=== PATIENT | male | born 1945 | race Caucasian/White ===

== ENCOUNTER 2016-11-30 08:00 | Outpatient (CLI) | payer MEDICARE, OTHER | END 2016-11-30 08:01 | disposition home or self-care (01) | DX: I82.729 Chronic embolism and thrombosis of deep veins of unspecified upper extremity (principal) ==

== ENCOUNTER 2017-01-26 14:34 | Outpatient (CLI) | payer MEDICARE, OTHER | END 2017-01-26 14:35 | disposition home or self-care (01) | DX: I82.729 Chronic embolism and thrombosis of deep veins of unspecified upper extremity (principal) ==

== ENCOUNTER 2017-03-28 08:00 | Outpatient (CLI) | payer MEDICARE, OTHER | END 2017-03-28 08:01 | disposition home or self-care (01) | LOC: LAB.F 08:00 | PROVIDERS: ATTEND Internal Medicine | DX: I82.729 Chronic embolism and thrombosis of deep veins of unspecified upper extremity (principal) | CPT/HCPCS: 85610 ==

== ENCOUNTER 2017-05-26 13:50 | Outpatient (CLI) | payer MEDICARE, OTHER | END 2017-05-26 13:51 | disposition home or self-care (01) | LOC: LAB.F 13:50 | PROVIDERS: ATTEND Internal Medicine | DX: I82.729 Chronic embolism and thrombosis of deep veins of unspecified upper extremity (principal) | CPT/HCPCS: 85610 ==

== ENCOUNTER 2017-07-26 12:55 | Outpatient (CLI) | payer MEDICARE, OTHER | END 2017-07-26 12:56 | disposition home or self-care (01) | LOC: LAB.F 12:55 | PROVIDERS: ATTEND Internal Medicine | DX: I82.729 Chronic embolism and thrombosis of deep veins of unspecified upper extremity (principal) | CPT/HCPCS: 85610 ==

== ENCOUNTER 2017-09-05 15:13 | Outpatient (CLI) | payer MEDICARE, OTHER ==
[2017-09-05 18:09] LABS: PT - PROTHROMBIN TIME 21.9 secs (9.9-12.6)
== END 2017-09-05 15:14 | disposition home or self-care (01) ==
LOC: LAB.F 15:13
PROVIDERS: ATTEND Internal Medicine
DX: I82.729 Chronic embolism and thrombosis of deep veins of unspecified upper extremity (principal); I82.4Z9 Acute embolism and thrombosis of unspecified deep veins of unspecified distal lower extremity
CPT/HCPCS: 36415; 85610

== ENCOUNTER 2017-09-21 11:29 | Outpatient (CLI) | payer MEDICARE, OTHER | END 2017-09-21 11:30 | disposition home or self-care (01) | LOC: LAB.F 11:29 | PROVIDERS: ATTEND Internal Medicine | DX: I82.729 Chronic embolism and thrombosis of deep veins of unspecified upper extremity (principal) | CPT/HCPCS: 85610 ==

== ENCOUNTER 2017-11-16 14:33 | Outpatient (CLI) | payer MEDICARE, OTHER | END 2017-11-16 14:34 | disposition home or self-care (01) | LOC: LAB.F 14:33 | PROVIDERS: ATTEND Internal Medicine | DX: I82.729 Chronic embolism and thrombosis of deep veins of unspecified upper extremity (principal) | CPT/HCPCS: 85610 ==

== ENCOUNTER 2018-01-16 10:11 | Outpatient (CLI) | payer MEDICARE, OTHER | END 2018-01-16 10:12 | disposition home or self-care (01) | LOC: LAB.F 10:11 | PROVIDERS: ATTEND Internal Medicine | DX: I82.729 Chronic embolism and thrombosis of deep veins of unspecified upper extremity (principal) | CPT/HCPCS: 85610 ==

== ENCOUNTER 2018-03-17 13:41 | Outpatient (CLI) | payer MEDICARE, OTHER | END 2018-03-17 13:42 | disposition home or self-care (01) | LOC: LAB.F 13:41 | PROVIDERS: ATTEND Internal Medicine | DX: I82.729 Chronic embolism and thrombosis of deep veins of unspecified upper extremity (principal) | CPT/HCPCS: 85610 ==

== ENCOUNTER 2018-04-12 13:25 | Outpatient (CLI) | payer MEDICARE, OTHER ==
[2018-04-12 17:42] LABS: HGB - HEMOGLOBIN 13.5 g/dL (14.0-18.0); MEAN CORPUSCULAR HEMOGLOBIN 29.5 pg (27.0-31.0); MEAN CORPUSCULAR HGB CONC 33.9 g/dL (32.0-36.0); MEAN CORPUSCULAR VOLUME 87.1 fL (80.0-94.0); MEAN PLATELET VOLUME 9.8 fL (7.4-11.4); RED BLOOD COUNT 4.56 10^6/uL (4.70-6.10); RED CELL DISTRIBUTION WIDTH 14.7 % (12.0-15.0); WHITE BLOOD COUNT 7.8 x10^3/uL (4.8-10.8)
[2018-04-12 18:04] LABS: ALBUMIN 3.4 g/dL (3.2-5.5); ALKALINE PHOSPHATASE 56 IU/L (42-121); ALT ALANINE AMINOTRANSFERASE 20 IU/L (10-60); AST ASPARTATE AMINOTRANSFERASE 24 IU/L (10-42); BILIRUBIN,TOTAL 0.6 mg/dL (0.2-1.0); BUN - BLOOD UREA NITROGEN 22 mg/dL (6-20); CARBON DIOXIDE - CO2 27 mmol/L (21-32); CHLORIDE 101 mmol/L (101-111); CHOLESTEROL 140 mg/dL; GFR - MDRD 73 (>89); GLUCOSE 129 mg/dL (70-100); HDL CHOLESTEROL 28 mg/dL; SODIUM 135 mmol/L (135-145); TOTAL PROTEIN 6.9 g/dL (6.7-8.2)
[2018-04-12 18:26] LABS: LDL CHOLESTEROL,DIRECT 64 mg/dL; LDLD/HDL RATIO 2.3 (<3.6)
== END 2018-04-12 13:26 | disposition home or self-care (01) ==
LOC: LAB.F 13:25
PROVIDERS: ATTEND Internal Medicine
DX: C61 Malignant neoplasm of prostate (principal); I10 Essential (primary) hypertension; C73 Malignant neoplasm of thyroid gland
CPT/HCPCS: 36415; 80053; 80061; 83721; 84153; 84443; 85027

== ENCOUNTER 2018-05-15 15:30 | Outpatient (CLI) | payer MEDICARE, OTHER | END 2018-05-15 15:31 | disposition home or self-care (01) | LOC: LAB.F 15:30 | PROVIDERS: ATTEND Internal Medicine | DX: I82.729 Chronic embolism and thrombosis of deep veins of unspecified upper extremity (principal) | CPT/HCPCS: 85610 ==

== ENCOUNTER 2018-07-12 14:01 | Outpatient (CLI) | payer MEDICARE, OTHER | END 2018-07-12 14:02 | disposition home or self-care (01) | LOC: LAB.F 14:01 | PROVIDERS: ATTEND Internal Medicine | DX: I82.729 Chronic embolism and thrombosis of deep veins of unspecified upper extremity (principal) | CPT/HCPCS: 85610 ==

== ENCOUNTER 2018-07-24 14:02 | Outpatient (CLI) | payer MEDICARE, OTHER | END 2018-07-24 14:03 | disposition home or self-care (01) | LOC: LAB.F 14:02 | PROVIDERS: ATTEND Internal Medicine | DX: I82.729 Chronic embolism and thrombosis of deep veins of unspecified upper extremity (principal) | CPT/HCPCS: 85610 ==

== ENCOUNTER 2018-09-14 14:17 | Outpatient (CLI) | payer MEDICARE, OTHER | END 2018-09-14 14:18 | disposition home or self-care (01) | LOC: LAB.F 14:17 | PROVIDERS: ATTEND Internal Medicine | DX: I82.729 Chronic embolism and thrombosis of deep veins of unspecified upper extremity (principal) | CPT/HCPCS: 85610 ==

== ENCOUNTER 2018-11-03 14:19 | Outpatient (CLI) | payer MEDICARE, OTHER | END 2018-11-03 14:20 | disposition home or self-care (01) | LOC: LAB 14:19 | PROVIDERS: ATTEND Internal Medicine | DX: I82.729 Chronic embolism and thrombosis of deep veins of unspecified upper extremity (principal) | CPT/HCPCS: 85610 ==

== ENCOUNTER 2018-12-29 12:25 | Outpatient (CLI) | payer MEDICARE, OTHER | END 2018-12-29 12:26 | disposition home or self-care (01) | LOC: LAB.F 12:25 | PROVIDERS: ATTEND Internal Medicine | DX: I82.729 Chronic embolism and thrombosis of deep veins of unspecified upper extremity (principal) | CPT/HCPCS: 85610 ==

== ENCOUNTER 2019-01-30 15:08 | Outpatient (CLI) | payer MEDICARE, OTHER | END 2019-01-30 15:09 | disposition home or self-care (01) | LOC: LAB.F 15:08 | PROVIDERS: ATTEND Internal Medicine | DX: I82.729 Chronic embolism and thrombosis of deep veins of unspecified upper extremity (principal) | CPT/HCPCS: 85610 ==

== ENCOUNTER 2019-02-28 14:02 | Outpatient (CLI) | payer MEDICARE, OTHER | END 2019-02-28 14:03 | disposition home or self-care (01) | LOC: LAB.F 14:02 | PROVIDERS: ATTEND Internal Medicine | DX: I82.729 Chronic embolism and thrombosis of deep veins of unspecified upper extremity (principal) | CPT/HCPCS: 85610 ==

== ENCOUNTER 2019-03-22 13:25 | Outpatient (CLI) | payer MEDICARE, OTHER | END 2019-03-22 13:26 | disposition home or self-care (01) | LOC: LAB.F 13:25 | PROVIDERS: ATTEND Internal Medicine | DX: I82.729 Chronic embolism and thrombosis of deep veins of unspecified upper extremity (principal) | CPT/HCPCS: 85610 ==

== ENCOUNTER 2019-04-13 13:30 | Outpatient (CLI) | payer MEDICARE, OTHER | END 2019-04-13 13:31 | disposition home or self-care (01) | LOC: LAB.F 13:30 | PROVIDERS: ATTEND Internal Medicine | DX: I82.729 Chronic embolism and thrombosis of deep veins of unspecified upper extremity (principal) | CPT/HCPCS: 85610 ==

== ENCOUNTER 2019-06-20 10:09 | Outpatient (CLI) | payer MEDICARE, OTHER | END 2019-06-20 10:10 | disposition home or self-care (01) | LOC: LAB.S 10:09 | PROVIDERS: ATTEND Internal Medicine | DX: I82.729 Chronic embolism and thrombosis of deep veins of unspecified upper extremity (principal) | CPT/HCPCS: 85610 ==

== ENCOUNTER 2019-07-20 11:46 | Outpatient (CLI) | payer MEDICARE, OTHER | END 2019-07-20 11:47 | disposition home or self-care (01) | LOC: LAB.S 11:46 | PROVIDERS: ATTEND Internal Medicine | DX: I82.729 Chronic embolism and thrombosis of deep veins of unspecified upper extremity (principal) | CPT/HCPCS: 85610 ==

== ENCOUNTER 2019-08-15 11:30 | Outpatient (CLI) | payer MEDICARE, OTHER | END 2019-08-15 11:31 | disposition home or self-care (01) | LOC: LAB.S 11:30 | PROVIDERS: ATTEND Internal Medicine | DX: I82.729 Chronic embolism and thrombosis of deep veins of unspecified upper extremity (principal) | CPT/HCPCS: 85610 ==

== ENCOUNTER 2019-09-28 13:41 | Outpatient (CLI) | payer MEDICARE, OTHER | END 2019-09-28 13:42 | disposition home or self-care (01) | LOC: LAB.S 13:41 | PROVIDERS: ATTEND Internal Medicine | DX: I82.729 Chronic embolism and thrombosis of deep veins of unspecified upper extremity (principal) | CPT/HCPCS: 85610 ==

== ENCOUNTER 2019-12-04 12:55 | Outpatient (CLI) | payer MEDICARE, OTHER | END 2019-12-04 12:56 | disposition home or self-care (01) | LOC: LAB.S 12:55 | PROVIDERS: ATTEND Internal Medicine | DX: I82.729 Chronic embolism and thrombosis of deep veins of unspecified upper extremity (principal) | CPT/HCPCS: 85610 ==

== ENCOUNTER 2020-03-06 11:05 | Outpatient (CLI) | payer MEDICARE, OTHER | END 2020-03-06 11:06 | disposition home or self-care (01) | LOC: LAB 11:05 | PROVIDERS: ATTEND Internal Medicine | DX: I82.4Z9 Acute embolism and thrombosis of unspecified deep veins of unspecified distal lower extremity (principal) | CPT/HCPCS: 85610 ==

== ENCOUNTER 2020-05-02 13:35 | Outpatient (CLI) | payer MEDICARE, OTHER | END 2020-05-02 13:36 | disposition home or self-care (01) | LOC: LAB 13:35 | PROVIDERS: ATTEND Internal Medicine | DX: I82.4Z9 Acute embolism and thrombosis of unspecified deep veins of unspecified distal lower extremity (principal) | CPT/HCPCS: 85610 ==

== ENCOUNTER 2020-08-03 17:12 | Emergency (ER) | payer MEDICARE, OTHER ==
[2020-08-03 17:36] LABS: BILIRUBIN,URINE NEGATIVE (NEGATIVE); GLUCOSE, URINE (UA) NEGATIVE (NEGATIVE); KETONES,URINE (UA) NEGATIVE (NEGATIVE); LEUKOCYTE ESTERASE, URINE NEGATIVE (NEGATIVE); NITRITE,URINE NEGATIVE (NEGATIVE); OCCULT BLOOD,URINE LARGE (NEGATIVE); PH,URINE 5.5 PH (5.0-7.5); PROTEIN,URINE 100 mg/dL (NEGATIVE); UROBILINOGEN,URINE 1 (NORMAL) E.U./dL (NORMAL)
[2020-08-03 17:39] LABS: CLARITY,URINE CLOUDY (CLEAR)
[2020-08-03 17:46] LABS: BACTERIA,URINE Rare /HPF (None Seen); RBC,URINE TNTC /HPF (0-5); SQUAMOUS EPITHELIAL CELL,UR NONE SEEN (<= Few)
[2020-08-03 17:53] LABS: BASOPHILS % (AUTO) 0.3 %; EOSINOPHILS # (AUTO) 0.2 10^3/uL (0.0-0.7); EOSINOPHILS % (AUTO) 2.6 %; HGB - HEMOGLOBIN 13.1 g/dL (14.0-18.0); LYMPHOCYTES # (AUTO) 1.5 10^3/uL (1.5-3.5); LYMPHOCYTES % (AUTO) 19.7 %; MEAN CORPUSCULAR HEMOGLOBIN 28.7 pg (27.0-31.0); MEAN CORPUSCULAR HGB CONC 33.6 g/dL (32.0-36.0); MEAN CORPUSCULAR VOLUME 85.3 fL (80.0-94.0); MEAN PLATELET VOLUME 9.5 fL (7.4-11.4); MONOCYTES # (AUTO) 0.9 10^3/uL (0.0-1.0); MONOCYTES % (AUTO) 11.9 %; NEUTROPHILS # (AUTO) 4.8 10^3/uL (1.5-6.6); NEUTROPHILS % (AUTO) 64.7 %; PLT - PLATELET COUNT 159 10^3/uL (130-450); RED BLOOD COUNT 4.57 10^6/uL (4.70-6.10); RED CELL DISTRIBUTION WIDTH 14.3 % (12.0-15.0); WHITE BLOOD COUNT 7.4 x10^3/uL (4.8-10.8)
[2020-08-03 17:59] LABS: INR 2.5 (0.8-1.2)
[2020-08-03 18:05] LABS: CALCIUM 7.5 mg/dL (8.5-10.3); CREATININE 0.9 mg/dL (0.6-1.2)
[2020-08-03 19:22] VITALS: BP 139/86
[2020-08-03] MEDS ORDERED: cephALEXin 250 MG CAPSULE PO STA (19:26)
--- NOTE | 2020-08-03 19:28 | ED Physician Documentation ---
PD HPI MALE - Stated complaint Stated Complaint: BLOOD IN URINE - Chief complaint Chief Complaint: Abd Pain - History obtained from History obtained from: Patient - History of Present Illness Timing - onset: Today Timing - duration: Days (1) Timing - details: Gradual onset Pain level max: 0 Pain level now: 0 Associated symptoms: Hematuria Similar symptoms before: Has not had sx before Recently seen: Not recently seen - Additional information Additional information: Patient states that he was on a long car trip recently and when he got home tonight noticed blood in his urine. Otherwise asymptomatic. Is on warfarin. No back pain. No head pain. No trauma. Review of Systems Constitutional: denies: Fever, Chills Respiratory: denies: Cough GI: denies: Abdominal Pain, Nausea, Vomiting, Diarrhea Skin: denies: Rash Musculoskeletal: denies: Neck pain, Back pain Neurologic: denies: Headache PD PAST MEDICAL HISTORY - Past Medical History Past Medical History: No - Past Surgical History Past Surgical History: No - Present Medications Home Medications: Ambulatory Orders Medication Instructions Recorded Confirmed Cephalexin [Keflex] 500 mg PO Q6H #28 capsule 08/03/20 - Allergies Allergies/Adverse Reactions: Allergies Allergy/AdvReac Type Severity Reaction Status Date / Time No Known Drug Allergies Allergy Verified 08/03/20 17:15 - Living Situation Living Situation: reports: With family Living Arrangement: reports: At home - Social History Does the pt have substance abuse?: No - Family History Family history: reports: Non contributory PD ED PE NORMAL - Vitals Vital signs reviewed: Yes - General General: Alert and oriented X 3, No acute distress - HEENT HEENT: Moist mucous membranes - Neck Neck: Supple, no meningeal sign - Cardiac Cardiac: RRR, Strong equal pulses - Respiratory Respiratory: No respiratory distress, Clear bilaterally - Abdomen Abdomen: Soft, Non tender, Non distended - Back Back: No CVA TTP, No spinal TTP - Derm Derm: Warm and dry - Neuro Neuro: Alert and oriented X 3 - Psych Psych: Normal mood, Normal affect Results - Vitals Vitals: Vital Signs - 24 hr 08/03/20 08/03/20 17:15 19:22 Temperature 36.5 C Heart Rate 70 63 Respiratory 16 Rate Blood Pressure 178/91 H 139/86 H O2 Saturation 98 Oxygen O2 Source Room air - Labs Labs: Laboratory Tests 08/03/20 08/03/20 08/03/20 17:25 17:46 17:46 WBC 7.4 RBC 4.57 L Hgb 13.1 L Hct 39.0 L MCV 85.3 MCH 28.7 MCHC 33.6 RDW 14.3 Plt Count 159 MPV 9.5 Neut # (Auto) 4.8 Lymph # (Auto) 1.5 [place] # (Auto) 0.9 Eos # (Auto) 0.2 Baso # (Auto) 0.0 Absolute Nucleated RBC 0.00 Nucleated RBC % 0.0 PT 26.0 H INR 2.5 H Sodium Potassium Chloride Carbon Dioxide Anion Gap BUN Creatinine Estimated GFR (MDRD) Glucose Calcium Urine Color DARK YELLOW Urine Clarity CLOUDY Urine pH 5.5 Ur Specific [place] 1.025 Urine Protein 100 H Urine Glucose (UA) NEGATIVE Urine Ketones NEGATIVE Urine Occult Blood LARGE H Urine Nitrite NEGATIVE Urine Bilirubin NEGATIVE Urine Urobilinogen 1 (NORMAL) Ur Leukocyte Esterase NEGATIVE Urine RBC TNTC H Urine WBC 0-3 Ur Squamous Epith Cells NONE SEEN Urine Bacteria Rare Ur Microscopic Review INDICATED Urine Culture Comments NOT INDICATED 08/03/20 17:46 WBC RBC Hgb Hct MCV MCH MCHC RDW Plt Count MPV Neut # (Auto) Lymph # (Auto) [place] # (Auto) Eos # (Auto) Baso # (Auto) Absolute Nucleated RBC Nucleated RBC % PT INR Sodium 140 Potassium 4.1 Chloride 104 Carbon Dioxide 24 Anion Gap 12.0 BUN 27 H Creatinine 0.9 Estimated GFR (MDRD) 82 L Glucose 181 H Calcium 7.5 L Urine Color Urine Clarity Urine pH Ur Specific [place] Urine Protein Urine Glucose (UA) Urine Ketones Urine Occult Blood Urine Nitrite Urine Bilirubin Urine Urobilinogen Ur Leukocyte Esterase Urine RBC Urine WBC Ur Squamous Epith Cells Urine Bacteria Ur Microscopic Review Urine Culture Comments PD MEDICAL DECISION MAKING - ED course Complexity details: reviewed results, re-evaluated patient, considered differential, d/w patient ED course: Patient with hematuria of unclear etiology, does have bacteruria, so will treat for UTI and see how he progresses. Otherwise asymptomatic. Patient counseled regarding signs and symptoms for which I believe and urgent re-evaluation would be necessary. Patient with good understanding of and agreement to plan and is comfortable going home at this time This document was made in part using voice recognition software. While efforts are made to proofread this document, sound alike and grammatical errors may occur. Departure - Departure Disposition: 01 Home, Self Care Clinical Impression: Anticoagulant long-term use Hematuria Qualifiers: Hematuria type: gross Qualified Code(s): R31.0 - Gross hematuria UTI (urinary tract infection) Qualifiers: Urinary tract infection type: acute cystitis Hematuria presence: with hematuria Qualified Code(s): N30.01 - Acute cystitis with hematuria Condition: Good Instructions: ED UTI Cystitis Male Follow-Up: Lencho Augustin MD [Primary Care Provider] - Within 1 week Prescriptions: Cephalexin [Keflex] 500 mg PO Q6H #28 capsule Comments: Take all antibiotics until gone. Return if you worsen. Your INR is 2.5 today. The blood in the urine should resolve over the next 2 to 3 days Discharge Date/Time: 08/03/20 19:36
== END 2020-08-03 19:36 | disposition home or self-care (01) ==
LOC: ED 17:12
DX: N30.01 Acute cystitis with hematuria (principal); Z79.01 Long term (current) use of anticoagulants
CPT/HCPCS: 36415; 80048; 81001; 85025; 85610; 99283; 99284; A9270; 81003; 87086

== ENCOUNTER 2020-10-04 12:59 | Outpatient (CLI) | payer MEDICARE, OTHER | END 2020-10-04 13:00 | disposition home or self-care (01) | LOC: LAB.S 12:59 | PROVIDERS: ATTEND Internal Medicine | DX: I82.4Z9 Acute embolism and thrombosis of unspecified deep veins of unspecified distal lower extremity (principal) | CPT/HCPCS: 85610 ==

== ENCOUNTER 2020-10-17 09:32 | Outpatient (CLI) | payer MEDICARE, OTHER ==
[2020-10-17 14:07] LABS: HGB - HEMOGLOBIN 13.4 g/dL (14.0-18.0); MEAN CORPUSCULAR HEMOGLOBIN 28.2 pg (27.0-31.0); MEAN CORPUSCULAR HGB CONC 32.8 g/dL (32.0-36.0); MEAN CORPUSCULAR VOLUME 85.9 fL (80.0-94.0); MEAN PLATELET VOLUME 11.3 fL (7.4-11.4); RED BLOOD COUNT 4.76 10^6/uL (4.70-6.10); RED CELL DISTRIBUTION WIDTH 14.2 % (12.0-15.0); WHITE BLOOD COUNT 7.8 x10^3/uL (4.8-10.8)
[2020-10-17 14:16] LABS: INR 2.4 (0.8-1.2); PT - PROTHROMBIN TIME 25.5 secs (9.9-12.6)
[2020-10-17 14:23] LABS: ALBUMIN 3.6 g/dL (3.2-5.5); ALBUMIN/GLOBULIN RATIO 1.1 (1.0-2.2); ALKALINE PHOSPHATASE 87 IU/L (42-121); ALT ALANINE AMINOTRANSFERASE 21 IU/L (10-60); AST ASPARTATE AMINOTRANSFERASE 22 IU/L (10-42); BILIRUBIN,TOTAL 0.8 mg/dL (0.2-1.0); BUN - BLOOD UREA NITROGEN 22 mg/dL (6-20); CALCIUM 7.3 mg/dL (8.5-10.3); CARBON DIOXIDE - CO2 25 mmol/L (21-32); CHLORIDE 103 mmol/L (101-111); CHOL/HDL RATIO 3.3 (<5.0); CHOLESTEROL 106 mg/dL; CREATININE 0.9 mg/dL (0.6-1.2); GLUCOSE 144 mg/dL (70-100); HDL CHOLESTEROL 32 mg/dL; LDL CHOLESTEROL,CALCULATED 44 mg/dL; LDL/HDL RATIO 1.4 (<3.6); SODIUM 139 mmol/L (135-145); VLDL CHOLESTEROL 30 mg/dL
[2020-10-17 14:24] LABS: CREATININE,URINE 126.7 mg/dL; MICROALBUM/CREATININE RATIO,UR 87.6 ug/mg (<30.0); MICROALBUMIN,URINE 11.1 mg/dL (0-300.0)
[2020-10-17 14:46] LABS: HEMOGLOBIN A1c% 6.9 % (4.27-6.07)
[2020-10-18 13:44] LABS: HEPATITIS C ANTIBODY NON-REACTIVE (NON-REACTIVE)
== END 2020-10-17 09:33 | disposition home or self-care (01) ==
LOC: LAB.S 09:32
PROVIDERS: ATTEND Internal Medicine
DX: Z00.00 Encounter for general adult medical examination without abnormal findings (principal); I10 Essential (primary) hypertension; E20.9 Hypoparathyroidism, unspecified; R73.03 Prediabetes; Z79.01 Long term (current) use of anticoagulants; Z79.899 Other long term (current) drug therapy; Z11.59 Encounter for screening for other viral diseases
CPT/HCPCS: 36415; 80053; 80061; 82043; 82570; 83036; 84443; 85027; 85610; 86803; G0103; 83721; 84153

== ENCOUNTER 2020-11-27 12:43 | Outpatient (CLI) | payer MEDICARE, OTHER | END 2020-11-27 12:44 | disposition home or self-care (01) | LOC: LAB.S 12:43 | PROVIDERS: ATTEND Internal Medicine | DX: I82.4Z9 Acute embolism and thrombosis of unspecified deep veins of unspecified distal lower extremity (principal) | CPT/HCPCS: 85610 ==

== ENCOUNTER 2021-01-23 15:15 | Outpatient (CLI) | payer MEDICARE, OTHER | END 2021-01-23 15:16 | disposition home or self-care (01) | LOC: LAB.S 15:15 | PROVIDERS: ATTEND Internal Medicine | DX: I82.4Z9 Acute embolism and thrombosis of unspecified deep veins of unspecified distal lower extremity (principal) | CPT/HCPCS: 85610 ==

== ENCOUNTER 2021-03-23 14:07 | Outpatient (CLI) | payer MEDICARE, OTHER | END 2021-03-23 14:08 | disposition home or self-care (01) | LOC: LAB.S 14:07 | PROVIDERS: ATTEND Internal Medicine | DX: I82.4Z9 Acute embolism and thrombosis of unspecified deep veins of unspecified distal lower extremity (principal) | CPT/HCPCS: 36416; 85610 ==

== ENCOUNTER 2021-05-20 13:32 | Outpatient (CLI) | payer MEDICARE, OTHER | END 2021-05-20 13:33 | disposition home or self-care (01) | LOC: LAB.S 13:32 | PROVIDERS: ATTEND Internal Medicine | DX: I82.4Z9 Acute embolism and thrombosis of unspecified deep veins of unspecified distal lower extremity (principal) | CPT/HCPCS: 36416; 85610 ==

== ENCOUNTER 2021-07-03 16:05 | Outpatient (CLI) | payer MEDICARE, OTHER | END 2021-07-03 16:06 | disposition home or self-care (01) | LOC: LAB.S 16:05 | PROVIDERS: ATTEND Internal Medicine | DX: I82.4Z9 Acute embolism and thrombosis of unspecified deep veins of unspecified distal lower extremity (principal) | CPT/HCPCS: 36416; 85610 ==

== ENCOUNTER 2021-09-03 08:00 | Outpatient (CLI) | payer MEDICARE, OTHER | END 2021-09-03 23:59 | disposition home or self-care (01) | LOC: LAB.S 08:00 | PROVIDERS: ATTEND Internal Medicine | DX: I82.4Z9 Acute embolism and thrombosis of unspecified deep veins of unspecified distal lower extremity (principal) | CPT/HCPCS: 36416; 85610 ==

== ENCOUNTER 2021-11-03 12:52 | Outpatient (CLI) | payer OTHER | END 2021-11-03 12:53 | disposition home or self-care (01) | LOC: LAB.S 12:52 | PROVIDERS: ATTEND Internal Medicine | DX: I82.4Z9 Acute embolism and thrombosis of unspecified deep veins of unspecified distal lower extremity (principal) | CPT/HCPCS: 36416; 85610 ==

== ENCOUNTER 2021-12-30 12:14 | Outpatient (CLI) | payer MEDICARE | END 2021-12-30 12:15 | disposition home or self-care (01) | LOC: LAB.S 12:14 | PROVIDERS: ATTEND Internal Medicine | DX: I82.4Z9 Acute embolism and thrombosis of unspecified deep veins of unspecified distal lower extremity (principal) | CPT/HCPCS: 36416; 85610 ==

== ENCOUNTER 2022-02-16 07:58 | Outpatient (CLI) | payer MEDICARE | END 2022-02-16 07:59 | disposition critical access hospital (66) | LOC: EMS 07:58 | DX: R42 Dizziness and giddiness (principal) | CPT/HCPCS: A0425; A0429 ==

== ENCOUNTER 2022-02-16 08:33 | Emergency (ER) | payer MEDICARE ==
--- NOTE | 2022-02-16 08:55 | ED Physician Documentation ---
History of Present Illness - Stated complaint Stated Complaint: NEAR SYNCOPE - History obtained from History obtained from: Patient - History of Present Illness Timing: Today Pain level max: 0 Pain level now: 0 - Additonal information Additional information: 76-year-old male states that he was fishing today when he stood up quickly and felt lightheaded. This lasted for about 5 to 10 seconds. He felt like the room was spinning. Did fall. Does not think he struck his head. 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 No chest pain. No shortness of breath. Currently is fully asymptomatic. He did not eat or drink this morning. Has never had similar symptoms previously. Nothing makes it better or worse. Negative orthostatics with EMS. Review of Systems Constitutional: denies: Fever, Chills Cardiac: denies: Chest pain / pressure Respiratory: denies: Cough, Wheezing GI: denies: Vomiting, Diarrhea Skin: denies: Rash Musculoskeletal: denies: Neck pain, Back pain Neurologic: denies: Headache PD PAST MEDICAL HISTORY - Past Medical History Past Medical History: Yes Other Past Medical History: DVT - Past Surgical History Past Surgical History: No - Present Medications Home Medications: Ambulatory Orders Medication Instructions Recorded Confirmed cephALEXin [Keflex] 500 mg PO Q6H #28 capsule 08/03/20 - Allergies Allergies/Adverse Reactions: Allergies Allergy/AdvReac Type Severity Reaction Status Date / Time No Known Drug Allergies Allergy Verified 02/16/22 08:43 - Living Situation Living Situation: reports: With family Living Arrangement: reports: At home - Social History Does the pt have substance abuse?: No - Family History Family history: reports: Non contributory PD ED PE NORMAL - Vitals Vital signs reviewed: Yes - General General: Alert and oriented X 3, No acute distress - HEENT HEENT: Atraumatic, PERRL, Ears normal, Moist mucous membranes, Pharynx benign, Other (no mastoid tenderness) - Neck Neck: Supple, no meningeal sign - Cardiac Cardiac: RRR - Respiratory Respiratory: No respiratory distress, Clear bilaterally - Abdomen Abdomen: Soft, Non tender, Non distended - Derm Derm: Warm and dry - Neuro Neuro: Alert and oriented X 3, 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, No motor deficit, No sensory deficit, Normal speech - Psych Psych: Normal mood, Normal affect Results - Vitals Vitals: Vital Signs - 24 hr 02/16/22 02/16/22 08:43 10:27 Temperature 37.0 C 36.6 C Heart Rate 58 L 57 L Respiratory 26 H 16 Rate Blood Pressure 168/99 H 126/85 H O2 Saturation 94 99 Oxygen O2 Source Room air - EKG (time done) 0844 Rate: Rate (enter#) (57) Rhythm: NSR [place]: Normal Intervals: Normal [place] QRS: Normal Ischemia: Normal ST segments - Labs Labs: Laboratory Tests 02/16/22 02/16/22 02/16/22 09:00 09:00 09:00 WBC 6.4 RBC 4.77 Hgb 13.4 L Hct 40.9 L MCV 85.7 MCH 28.1 MCHC 32.8 RDW 14.0 Plt Count 167 MPV 9.8 Neut # (Auto) 4.6 Lymph # (Auto) 1.0 L [place] # (Auto) 0.7 Eos # (Auto) 0.1 Baso # (Auto) 0.0 Absolute Nucleated RBC 0.00 Nucleated RBC % 0.0 PT 32.4 H INR 2.9 H Sodium 136 Potassium 4.2 Chloride 103 Carbon Dioxide 25 Anion Gap 8.0 BUN 20 Creatinine 0.8 Estimated GFR (MDRD) 93 Glucose 128 H Calcium 7.7 L Total Bilirubin 0.9 AST 21 ALT 19 Alkaline Phosphatase 84 Troponin I High Sens Total Protein 7.2 Albumin 3.6 Globulin 3.6 Albumin/Globulin Ratio 1.0 Lipase 29 02/16/22 09:00 WBC RBC Hgb Hct MCV MCH MCHC RDW Plt Count MPV Neut # (Auto) Lymph # (Auto) [place] # (Auto) Eos # (Auto) Baso # (Auto) Absolute Nucleated RBC Nucleated RBC % PT INR Sodium Potassium Chloride Carbon Dioxide Anion Gap BUN Creatinine Estimated GFR (MDRD) Glucose Calcium Total Bilirubin AST ALT Alkaline Phosphatase Troponin I High Sens 5.6 Total Protein Albumin Globulin Albumin/Globulin Ratio Lipase - Rads (name of study) head CT Radiology: Final report received, EMP read contemporaneously, See rad report (no acute abnormalities) cxr Radiology: Final report received, EMP read contemporaneously, See rad report (no acute abnormalities) PD MEDICAL DECISION MAKING - ED course Complexity details: reviewed results, re-evaluated patient, considered differential, d/w patient ED course: 76-year-old male with what appears to be near syncope today. This occurred after standing up quickly after bending over. No acute findings on EKG, laboratory testing, head CT. No chest pain. No shortness of breath. Does have opacification of the right mastoid air cells. He states that this is a chronic issue for him. No signs of active infection. No mastoid tenderness. No fevers. We will continue supportive care and have him follow-up with his doctor. Patient counseled regarding signs and symptoms for which I believe and urgent re-evaluation would be necessary. Patient with good understanding of and agreement to plan and is comfortable going home at this time This document was made in part using voice recognition software. While efforts are made to proofread this document, sound alike and grammatical errors may occur. Departure - Departure Disposition: 01 Home, Self Care Clinical Impression: Near syncope Condition: Good Instructions: ED Near Syncope Unkn Follow-Up: your,doctor in 1 week [Other] Comments: Drink plenty of fluids. Return if you worsen. Follow up with your doctor for further care. Your CT scans and lab testing do not show any acute abnormalities today. Follow up with your doctor for the right mastoid air opacification. IMPRESSION: 1.No acute intracranial abnormality. 2.Right mastoid air cell opacification. Discharge Date/Time: 02/16/22 10:28
[2022-02-16 09:05] LABS: BASOPHILS % (AUTO) 0.3 %; EOSINOPHILS # (AUTO) 0.1 10^3/uL (0.0-0.7); HCT - HEMATOCRIT 40.9 % (42.0-52.0); HGB - HEMOGLOBIN 13.4 g/dL (14.0-18.0); MEAN CORPUSCULAR HEMOGLOBIN 28.1 pg (27.0-31.0); MEAN CORPUSCULAR HGB CONC 32.8 g/dL (32.0-36.0); MEAN CORPUSCULAR VOLUME 85.7 fL (80.0-94.0); MEAN PLATELET VOLUME 9.8 fL (7.4-11.4); MONOCYTES # (AUTO) 0.7 10^3/uL (0.0-1.0); MONOCYTES % (AUTO) 10.1 %; NEUTROPHILS # (AUTO) 4.6 10^3/uL (1.5-6.6); NEUTROPHILS % (AUTO) 71.1 %; PLT - PLATELET COUNT 167 10^3/uL (130-450); RED BLOOD COUNT 4.77 10^6/uL (4.70-6.10); WHITE BLOOD COUNT 6.4 x10^3/uL (4.8-10.8)
--- NOTE | 2022-02-16 09:10 | XRAY Report ---
PROCEDURE: Chest 1 View X-Ray INDICATIONS: Chest Pain TECHNIQUE: One view of the chest was acquired. COMPARISON: None. FINDINGS: SUPPORT DEVICES: None. LUNGS/PLEURA: No focal consolidation, pleural effusion or space-occupying pneumothorax. MEDIASTINUM: The cardiomediastinal silhouette is within normal limits. Tortuous aorta. BONES/SOFT TISSUES: No acute abnormality. IMPRESSION: 1.No acute cardiopulmonary abnormality. Reviewed by: Jacob Bloom MD on 02/16/2022 9:08 AM PDT Approved by: Jacob Bloom MD on 02/16/2022 9:08 AM PDT Station ID: [id number]
--- NOTE | 2022-02-16 09:17 | CT Report ---
PROCEDURE: HEAD WO INDICATIONS: fall, head injury TECHNIQUE: Noncontrast 4.5 mm thick angled axial sections acquired from the foramen magnum to the vertex. For r adiation dose reduction, the following was used: automated exposure control, adjustment of mA and/or kV according to patient size. COMPARISON: None. FINDINGS: BRAIN PARENCHYMA: Mild white matter hypoattenuation, which may reflect the sequela microvascular isch emia. No acute cortical based (large territory) infarction, intracranial hemorrhage, mass or mass eff ect, or abnormal fluid collection. The density in the larger dural venous sinuses is grossly normal. VENTRICLES: Normal in size, shape, and position. BONES/SINUSES: The skull base and calvarium demonstrate no acute abnormality. The paranasal sinuses a nd left mastoid air cells are well aerated. Opacification of the right mastoid air cells. IMPRESSION: 1.No acute intracranial abnormality. 2.Right mastoid air cell opacification. Reviewed by: Jacob Bloom MD on 02/16/2022 9:15 AM PDT Approved by: Jacob Bloom MD on 02/16/2022 9:15 AM PDT Station ID: [id number]
[2022-02-16 09:22] LABS: INR 2.9 (0.8-1.2); PT - PROTHROMBIN TIME 32.4 secs (9.9-12.6)
[2022-02-16 09:50] LABS: ALBUMIN 3.6 g/dL (3.2-5.5); BILIRUBIN,TOTAL 0.9 mg/dL (0.2-1.0); CALCIUM 7.7 mg/dL (8.5-10.3); CREATININE 0.8 mg/dL (0.6-1.2); POTASSIUM 4.2 mmol/L (3.5-5.0); TOTAL PROTEIN 7.2 g/dL (6.7-8.2)
[2022-02-16 10:29] VITALS: BP 126/85
== END 2022-02-16 10:28 | disposition home or self-care (01) ==
LOC: EDUNIT# → ED 08:33
DX: R55 Syncope and collapse (principal); Z86.718 Personal history of other venous thrombosis and embolism; Z79.01 Long term (current) use of anticoagulants
CPT/HCPCS: 36415; 80053; 83690; 84484; 85025; 85610; 93005; 99283; 99284

== ENCOUNTER 2022-03-10 14:32 | Outpatient (CLI) | payer MEDICARE | END 2022-03-10 14:33 | disposition home or self-care (01) | LOC: LAB.S 14:32 | PROVIDERS: ATTEND Internal Medicine | DX: I82.4Z9 Acute embolism and thrombosis of unspecified deep veins of unspecified distal lower extremity (principal) | CPT/HCPCS: 36416; 85610 ==

== ENCOUNTER 2022-05-10 09:00 | Outpatient (CLI) | payer MEDICARE | END 2022-05-10 09:01 | disposition home or self-care (01) | LOC: LAB.S 09:00 | PROVIDERS: ATTEND Internal Medicine | DX: I82.4Z9 Acute embolism and thrombosis of unspecified deep veins of unspecified distal lower extremity (principal) | CPT/HCPCS: 36416; 85610 ==

== ENCOUNTER 2022-07-06 12:20 | Outpatient (CLI) | payer MEDICARE | END 2022-07-06 12:21 | disposition home or self-care (01) | LOC: LAB.S 12:20 | PROVIDERS: ATTEND Internal Medicine | DX: I82.4Z9 Acute embolism and thrombosis of unspecified deep veins of unspecified distal lower extremity (principal) | CPT/HCPCS: 36416; 85610 ==

== ENCOUNTER 2022-10-27 10:21 | Outpatient (CLI) | payer MEDICARE | END 2022-10-27 10:22 | disposition home or self-care (01) | LOC: LAB.S 10:21 | PROVIDERS: ATTEND Internal Medicine | DX: I82.4Z9 Acute embolism and thrombosis of unspecified deep veins of unspecified distal lower extremity (principal) | CPT/HCPCS: 36416; 85610 ==

== ENCOUNTER 2022-10-29 10:52 | Outpatient (CLI) | payer MEDICARE | END 2022-10-29 10:53 | disposition home or self-care (01) | LOC: LAB.S 10:52 | PROVIDERS: ATTEND Internal Medicine | DX: I82.4Z9 Acute embolism and thrombosis of unspecified deep veins of unspecified distal lower extremity (principal) | CPT/HCPCS: 36416; 85610 ==

== ENCOUNTER 2022-11-11 14:53 | Outpatient (CLI) | payer MEDICARE | END 2022-11-11 14:54 | disposition home or self-care (01) | LOC: LAB.S 14:53 | PROVIDERS: ATTEND Internal Medicine | DX: I82.4Z9 Acute embolism and thrombosis of unspecified deep veins of unspecified distal lower extremity (principal) | CPT/HCPCS: 36416; 85610 ==

== ENCOUNTER 2022-11-30 10:17 | Outpatient (CLI) | payer MEDICARE ==
[2022-11-30 14:59] LABS: HCT - HEMATOCRIT 39.2 % (42.0-52.0); HGB - HEMOGLOBIN 12.4 g/dL (14.0-18.0); MEAN CORPUSCULAR HEMOGLOBIN 27.9 pg (27.0-31.0); MEAN CORPUSCULAR HGB CONC 31.6 g/dL (32.0-36.0); MEAN CORPUSCULAR VOLUME 88.3 fL (80.0-94.0); MEAN PLATELET VOLUME 11.3 fL (7.4-11.4); RED BLOOD COUNT 4.44 10^6/uL (4.70-6.10); RED CELL DISTRIBUTION WIDTH 14.9 % (12.0-15.0); WHITE BLOOD COUNT 7.3 x10^3/uL (4.8-10.8)
[2022-11-30 15:23] LABS: ALBUMIN 3.6 g/dL (3.2-5.5); ALBUMIN/GLOBULIN RATIO 0.9 (1.0-2.2); ALKALINE PHOSPHATASE 214 IU/L (42-121); ALT ALANINE AMINOTRANSFERASE 25 IU/L (10-60); AST ASPARTATE AMINOTRANSFERASE 27 IU/L (10-42); BUN - BLOOD UREA NITROGEN 21 mg/dL (6-20); CALCIUM 7.2 mg/dL (8.5-10.3); CARBON DIOXIDE - CO2 30 mmol/L (21-32); CHLORIDE 103 mmol/L (101-111); CHOL/HDL RATIO 2.5 (<5.0); CHOLESTEROL 91 mg/dL; CREATININE 0.9 mg/dL (0.6-1.2); GFR - MDRD 81 (>89); GLUCOSE 123 mg/dL (70-100); HDL CHOLESTEROL 37 mg/dL; LDL CHOLESTEROL,CALCULATED 42 mg/dL; LDL/HDL RATIO 1.1 (<3.6); SODIUM 138 mmol/L (135-145); TOTAL PROTEIN 7.5 g/dL (6.7-8.2); TRIGLYCERIDES 58 mg/dL; VLDL CHOLESTEROL 12 mg/dL
[2022-11-30 15:24] LABS: CREATININE,URINE 147.6 mg/dL; MICROALBUM/CREATININE RATIO,UR 74.5 ug/mg (<30.0)
[2022-11-30 15:27] LABS: THYROID STIMULATING HORMONE 0.85 uIU/mL (0.34-5.60)
[2022-11-30 20:29] LABS: ESTIMATED AVERAGE GLUCOSE 143 mg/dL (70-100); HEMOGLOBIN A1c% 6.6 % (4.27-6.07)
== END 2022-11-30 10:18 | disposition home or self-care (01) ==
LOC: LAB.S 10:17
PROVIDERS: ATTEND Internal Medicine
DX: C61 Malignant neoplasm of prostate (principal); C73 Malignant neoplasm of thyroid gland; E11.42 Type 2 diabetes mellitus with diabetic polyneuropathy; I10 Essential (primary) hypertension; I48.0 Paroxysmal atrial fibrillation
CPT/HCPCS: 36415; 80053; 80061; 82043; 82570; 82607; 83036; 83721; 84153; 84443; 85027

== ENCOUNTER 2022-12-10 08:54 | Outpatient (CLI) | payer MEDICARE | END 2022-12-10 08:55 | disposition home or self-care (01) | LOC: LAB.S 08:54 | PROVIDERS: ATTEND Internal Medicine | DX: I82.4Z9 Acute embolism and thrombosis of unspecified deep veins of unspecified distal lower extremity (principal) | CPT/HCPCS: 36416; 85610 ==

== ENCOUNTER 2022-12-24 12:44 | Outpatient (CLI) | payer MEDICARE | END 2022-12-24 12:45 | disposition home or self-care (01) | LOC: LAB.S 12:44 | PROVIDERS: ATTEND Internal Medicine | DX: I82.4Z9 Acute embolism and thrombosis of unspecified deep veins of unspecified distal lower extremity (principal) | CPT/HCPCS: 36416; 85610 ==

== ENCOUNTER 2023-01-10 13:59 | Outpatient (CLI) | payer MEDICARE ==
[2023-01-10 20:22] LABS: HCT - HEMATOCRIT 34.5 % (42.0-52.0); HGB - HEMOGLOBIN 10.8 g/dL (14.0-18.0); MEAN CORPUSCULAR HEMOGLOBIN 28.3 pg (27.0-31.0); MEAN CORPUSCULAR HGB CONC 31.3 g/dL (32.0-36.0); MEAN CORPUSCULAR VOLUME 90.6 fL (80.0-94.0); MEAN PLATELET VOLUME 11.3 fL (7.4-11.4); RED BLOOD COUNT 3.81 10^6/uL (4.70-6.10); RED CELL DISTRIBUTION WIDTH 15.6 % (12.0-15.0); WHITE BLOOD COUNT 7.5 x10^3/uL (4.8-10.8)
== END 2023-01-10 14:00 | disposition home or self-care (01) ==
LOC: LAB.S 13:59
PROVIDERS: ATTEND Internal Medicine
DX: I82.4Z9 Acute embolism and thrombosis of unspecified deep veins of unspecified distal lower extremity (principal)
CPT/HCPCS: 36415; 85027; 85610

== ENCOUNTER 2023-01-27 10:36 | Outpatient (CLI) | payer MEDICARE | END 2023-01-27 10:37 | disposition home or self-care (01) | LOC: LAB.S 10:36 | PROVIDERS: ATTEND Internal Medicine | DX: I82.4Z9 Acute embolism and thrombosis of unspecified deep veins of unspecified distal lower extremity (principal) | CPT/HCPCS: 36416; 85610 ==

== ENCOUNTER 2023-02-04 09:15 | Outpatient (CLI) | payer MEDICARE | END 2023-02-04 09:16 | disposition home or self-care (01) | LOC: LAB.S 09:15 | PROVIDERS: ATTEND Internal Medicine | DX: I82.4Z9 Acute embolism and thrombosis of unspecified deep veins of unspecified distal lower extremity (principal) | CPT/HCPCS: 36416; 85610 ==

== ENCOUNTER 2023-02-18 10:58 | Outpatient (CLI) | payer MEDICARE | END 2023-02-18 10:59 | disposition home or self-care (01) | LOC: LAB.S 10:58 | PROVIDERS: ATTEND Internal Medicine | DX: I82.4Z9 Acute embolism and thrombosis of unspecified deep veins of unspecified distal lower extremity (principal) | CPT/HCPCS: 36416; 85610 ==

== ENCOUNTER 2023-02-28 14:52 | Outpatient (CLI) | payer MEDICARE | END 2023-02-28 14:53 | disposition home or self-care (01) | LOC: LAB.S 14:52 | PROVIDERS: ATTEND Internal Medicine | DX: I82.4Z9 Acute embolism and thrombosis of unspecified deep veins of unspecified distal lower extremity (principal) | CPT/HCPCS: 36416; 85610 ==

== ENCOUNTER 2023-03-09 12:17 | Outpatient (CLI) | payer MEDICARE | END 2023-03-09 12:18 | disposition home or self-care (01) | LOC: LAB.S 12:17 | PROVIDERS: ATTEND Internal Medicine | DX: I82.4Z9 Acute embolism and thrombosis of unspecified deep veins of unspecified distal lower extremity (principal) | CPT/HCPCS: 36416; 85610 ==

== ENCOUNTER 2023-03-21 13:27 | Outpatient (CLI) | payer MEDICARE ==
[2023-03-21 20:07] LABS: BASOPHILS % (AUTO) 0.3 %; EOSINOPHILS # (AUTO) 0.1 10^3/uL (0.0-0.7); EOSINOPHILS % (AUTO) 1.2 %; HCT - HEMATOCRIT 37.9 % (42.0-52.0); HGB - HEMOGLOBIN 12.1 g/dL (14.0-18.0); LYMPHOCYTES # (AUTO) 1.3 10^3/uL (1.5-3.5); MEAN CORPUSCULAR HEMOGLOBIN 28.5 pg (27.0-31.0); MEAN CORPUSCULAR HGB CONC 31.9 g/dL (32.0-36.0); MEAN CORPUSCULAR VOLUME 89.4 fL (80.0-94.0); MEAN PLATELET VOLUME 11.8 fL (7.4-11.4); MONOCYTES # (AUTO) 0.7 10^3/uL (0.0-1.0); MONOCYTES % (AUTO) 10.7 %; NEUTROPHILS # (AUTO) 4.5 10^3/uL (1.5-6.6); NEUTROPHILS % (AUTO) 68.3 %; PLT - PLATELET COUNT 150 10^3/uL (130-450); RED BLOOD COUNT 4.24 10^6/uL (4.70-6.10); RED CELL DISTRIBUTION WIDTH 14.8 % (12.0-15.0); WHITE BLOOD COUNT 6.6 x10^3/uL (4.8-10.8)
== END 2023-03-21 13:28 | disposition home or self-care (01) ==
LOC: LAB.S 13:27
PROVIDERS: ATTEND Internal Medicine
DX: I82.4Z9 Acute embolism and thrombosis of unspecified deep veins of unspecified distal lower extremity (principal)
CPT/HCPCS: 36415; 85025; 85610

== ENCOUNTER 2023-03-25 09:27 | Outpatient (CLI) | payer MEDICARE ==
[2023-03-25 15:38] LABS: CREATININE 0.8 mg/dL (0.6-1.2)
== END 2023-03-25 09:28 | disposition home or self-care (01) ==
LOC: LAB.S 09:27
PROVIDERS: ATTEND Internal Medicine
DX: I82.4Z9 Acute embolism and thrombosis of unspecified deep veins of unspecified distal lower extremity (principal)
CPT/HCPCS: 36415; 82565

== ENCOUNTER 2023-04-08 14:38 | Outpatient (CLI) | payer MEDICARE | END 2023-04-08 14:39 | disposition home or self-care (01) | LOC: LAB.S 14:38 | PROVIDERS: ATTEND Internal Medicine | DX: I82.4Z9 Acute embolism and thrombosis of unspecified deep veins of unspecified distal lower extremity (principal) | CPT/HCPCS: 36416; 85610 ==

== ENCOUNTER 2023-04-22 13:22 | Outpatient (CLI) | payer MEDICARE | END 2023-04-22 13:23 | disposition home or self-care (01) | LOC: LAB.S 13:22 | PROVIDERS: ATTEND Internal Medicine | DX: I82.4Z9 Acute embolism and thrombosis of unspecified deep veins of unspecified distal lower extremity (principal) | CPT/HCPCS: 36416; 85610 ==

== ENCOUNTER 2023-05-24 09:26 | Outpatient (CLI) | payer MEDICARE | END 2023-05-24 09:27 | disposition home or self-care (01) | LOC: LAB.S 09:26 | PROVIDERS: ATTEND Internal Medicine | DX: I82.4Z9 Acute embolism and thrombosis of unspecified deep veins of unspecified distal lower extremity (principal) | CPT/HCPCS: 36416; 85610 ==

== ENCOUNTER 2023-06-16 08:43 | Outpatient (CLI) | payer MEDICARE | END 2023-06-16 08:44 | disposition home or self-care (01) | LOC: LAB.S 08:43 | PROVIDERS: ATTEND Internal Medicine | DX: I82.4Z9 Acute embolism and thrombosis of unspecified deep veins of unspecified distal lower extremity (principal) | CPT/HCPCS: 36416; 85610 ==

== ENCOUNTER 2023-06-28 07:58 | Emergency (ER) | payer MEDICARE ==
--- NOTE | 2023-06-28 08:04 | ED Physician Documentation ---
PD HPI UPPER EXT INJURY - Stated complaint Stated Complaint: GLF/SHOULDER PX - History obtained from History obtained from: Patient - History of Present Illness Location: Right, Shoulder Type of injury: Fall (he states he lost balance and fell to side. Denies LOC, lightheaded, dizzy, nor focal weakness. Pain right shoulder, worse with ROM. Denies headache.) Where injury occurred: Home Timing - onset: How many days ago (2) Timing - duration: Days (2) Timing - details: Abrupt onset, Still present Worsened by: Moving, Palpating (along distal clavicle area.) Associated symptoms: No: Weakness, Numbness Contributing factors: Anticoagulated Similar symptoms before: Has not had sx before Review of Systems Constitutional: denies: Fever, Chills Nose: denies: Congestion Throat: denies: Sore throat Cardiac: denies: Chest pain / pressure Respiratory: denies: Cough GI: denies: Abdominal Pain, Vomiting, Diarrhea Skin: denies: Abrasion (s), Laceration (s) Neurologic: denies: Focal weakness, Numbness, Altered mental status, Headache PD PAST MEDICAL HISTORY - Past Medical History Cardiovascular: Atrial fibrillation - Past Surgical History Past Surgical History: No - Present Medications Home Medications: Ambulatory Orders Medication Instructions Recorded Confirmed cephALEXin [Keflex] 500 mg PO Q6H #28 capsule 08/03/20 - Allergies Allergies/Adverse Reactions: Allergies Allergy/AdvReac Type Severity Reaction Status Date / Time No Known Drug Allergies Allergy Verified 06/28/23 08:10 - Social History Does the pt smoke?: No Smoking Status: Never smoker Does the pt have substance abuse?: No PD ED PE NORMAL - Vitals Vital signs reviewed: Yes - General General: Alert and oriented X 3, No acute distress, Well developed/nourished - HEENT HEENT: Atraumatic (no tenderness but has a mild abrasion right parietal area. he says must have been from the fall. ) - Neck Neck: Supple, no meningeal sign, No bony TTP - Derm Derm: Normal color, Warm and dry - Extremities Extremities: Other (right shoulder is tender at AC area without stepoff nor defo rmity. Rotational movement of shoulder does not hurt, but abduction, extension, and lifting arm up causes pains. ) - Neuro Neuro: Alert and oriented X 3, No motor deficit, No sensory deficit Results - Vitals Vitals: Vital Signs - 24 hr 06/28/23 08:05 Temperature 36.8 C Heart Rate 70 Respiratory 16 Rate Blood Pressure 119/73 O2 Saturation 100 Oxygen O2 Source Room air - Rads (name of study) right shoulder Relevant Findings:: Prelim report reviewed, EMP independent interpretation of test (athritic changes, AC joint without widening. No noted fractures (small 2-3 mm avulsion type lesion above the AC joint oculd be c/w avulsion fx vs calcific ligament). ) head CT Relevant Findings:: Prelim report reviewed, EMP independent interpretation of test (the patient did have falls and is on DOAC, so got head CT. No ICH. ) PD Medical Decision Making - ED course Complexity details: reviewed results, considered differential (seems like AC strain. Xray without fracture. Can treat with guarded ROM. He is likely to get more stiff with a sling, so not given one and he is good with that, as is fairly comfortable with low movement of the arm.), d/w patient Departure - Departure Disposition: 01 Home, Self Care Clinical Impression: Acromioclavicular (joint) (ligament) sprain, Fall from slip, trip, or stumble, Abrasion head, Anticoagulant long-term use Condition: Stable Record reviewed to determine appropriate education?: Yes Instructions: ED Sprain AC Joint Comments: Your shoulder x-ray shows some arthritis which would be more of a long-term issue and not an acute injury. There is a tiny flake of bone at the AC joint w hich may represent a small avulsion fracture/chip fracture. The size of it is so small that it does not represent or need treatment as a true fracture per se. However can be indicative of a partial tear of the ligament at the acromioclavicular joint. Your location of pain and mechanism of injury along with the otherwise normal x-ray without notable fracture or dislocation, would correspond with a strain of the AC joint. This can typically heal with just being in limited motion and activity. It is often better not to be in a sling so it does not stiffen up. Light use and activity of the shoulder is good but avoid overhead reaching, push pull, heavy lifting. This can commonly take about 3 to 4 weeks to fully resolve. Tylenol as needed for pains. We did do a CT scan of your head as well since you are on a blood thinner and had fallen. I do not see any signs of bleeding or injury on your scan. The CT report port from the radiologist is still pending. Forms: PCP List Discharge Date/Time: 06/28/23 09:14
[2023-06-28] MEDS ORDERED: ACETAMINOPHEN 325 MG TABLET PO STA (08:13)
[2023-06-28 08:19] VITALS: BP 119/73; O2SAT 100
--- NOTE | 2023-06-28 08:56 | XRAY Report ---
PROCEDURE: Shoulder 3 View RT INDICATIONS: FALL ONTO RIGHT SHOULDER, PAIN AT CLAVICLE AND AC JOINT TECHNIQUE: 4 views of the shoulder were acquired. COMPARISON: None. FINDINGS: Bones: There are moderate degenerative changes. No displaced fracture or dislocation. Small periartic ular bone fragments may be from degeneration or prior injury. Partially seen mid humeral periosteal thickening. Soft tissues: Suspected calcific tendinosis. IMPRESSION: Moderate degenerative changes. No displaced fracture or dislocation. If there is high concern for fur ther derangement, consider MRI evaluation. Partially seen age-indeterminate mid humeral periosteal thickening, correlate with any clinical histo ry in this region. Reviewed by: Mckay Vega MD on 06/28/2023 8:55 AM PDT Approved by: Mckay Vega MD on 06/28/2023 8:55 AM PDT Station ID: [id number]
--- NOTE | 2023-06-28 08:59 | CT Report ---
PROCEDURE: HEAD WO INDICATIONS: fall, struck head, on DOAC TECHNIQUE: Noncontrast 4.5 mm thick angled axial sections acquired from the foramen magnum to the vertex. For r adiation dose reduction, the following was used: automated exposure control, adjustment of mA and/or kV according to patient size. COMPARISON: 02/16/2022 FINDINGS: Image quality: Excellent CSF spaces: Basal cisterns are patent. Lateral ventricles are symmetric. Volume: Vascular calcifications. Periventricular white matter disease is commonly seen with chronic m icroangiopathy. Volume loss is present. These findings are mild to moderate. Brain: No intracranial hemorrhage. [place]ot[place]-white differentiation is grossly maintained. Craniofacial structures: Mild mucosal thickening of the paranasal sinuses. Right mastoid effusion. IMPRESSION: No acute intracranial abnormality. Reviewed by: Mckay Vega MD on 06/28/2023 8:57 AM PDT Approved by: Mckay Vega MD on 06/28/2023 8:57 AM PDT Station ID: [id number]
== END 2023-06-28 09:14 | disposition home or self-care (01) ==
LOC: ED 07:58
DX: S43.51XA Sprain of right acromioclavicular joint, initial encounter (principal); S00.91XA Abrasion of unspecified part of head, initial encounter; W01.0XXA Fall on same level from slipping, tripping and stumbling without subsequent striking against object, initial encounter; I48.91 Unspecified atrial fibrillation; Z79.01 Long term (current) use of anticoagulants
CPT/HCPCS: 70450; 73030; 99284; A9270

== ENCOUNTER 2024-06-01 08:00 | Outpatient (CLI) | payer MEDICARE ==
--- NOTE | 2024-06-03 02:25 | XRAY Report ---
PROCEDURE: Chest 2V INDICATIONS: COUGH/COVID+ TECHNIQUE: 2 views of the chest were acquired. COMPARISON: 02/16/2022. FINDINGS: Surgical changes and devices: None. Lungs and pleura: No pleural effusions or pneumothorax. Lungs are clear. Mediastinum: Mediastinal contours appear normal. Heart size is normal. Bones and chest wall: No suspicious bony lesions. Overlying soft tissues appear unremarkable. IMPRESSION: No acute cardiopulmonary process. Reviewed by: Melvin Hamilton MD on 06/03/2024 2:24 AM PDT Approved by: Melvin Hamilton MD on 06/03/2024 2:24 AM PDT Station ID: [id number]
== END 2024-06-01 23:59 | disposition home or self-care (01) ==
LOC: DI.S 08:00
PROVIDERS: ATTEND Emergency Medicine
DX: J18.9 Pneumonia, unspecified organism (principal)

== ENCOUNTER 2024-06-09 08:00 | Outpatient (CLI) | payer MEDICARE ==
--- NOTE | 2024-06-10 21:45 | XRAY Report ---
PROCEDURE: Chest 2V INDICATIONS: COVID-19/PNEUMONIA TECHNIQUE: 2 views of the chest were acquired. COMPARISON: CXR 06/01/2024. FINDINGS: Surgical changes and devices: None. Lungs and pleura: No pleural effusions or pneumothorax. Lungs are clear. Mediastinum: Mediastinal contours appear normal. Heart size is normal. Bones and chest wall: No suspicious bony lesions. Overlying soft tissues appear unremarkable. IMPRESSION: No acute cardiopulmonary process. Reviewed by: Zoran Michaud MD on 06/10/2024 9:44 PM PDT Approved by: Zoran Michaud MD on 06/10/2024 9:44 PM PDT Station ID: [id number]
== END 2024-06-09 23:59 | disposition home or self-care (01) ==
LOC: DI.S 08:00
PROVIDERS: ATTEND Registered Nurse
DX: U07.1 COVID-19 (principal); J12.82 Pneumonia due to coronavirus disease 2019